=== PATIENT | female | born 1955 | race African-American/Black ===

== ENCOUNTER 2017-04-05 18:17 | Emergency (ER) | payer BC ==
[~2017-04-05] VITALS: Ht 162.6 cm; Wt 71.0 kg
[~2017-04-05 18:17] MED LIST: MACR100C PO; MULT-65 PO; PYRI200T4 PO
[2017-04-05 18:18] VITALS: BP 123/71; PULSE 94; RESP 14; TEMP 101.2; O2SAT 98
[2017-04-05] MEDS ORDERED: VITATAB43 PO (18:36)
[2017-04-05] MEDS ORDERED: VITA200013 PO (18:36)
[2017-04-05] MEDS ORDERED: METF500T PO (18:36)
[2017-04-05] MEDS ORDERED: NAPROXEN 500 MG TAB PO ONE (19:30)
[2017-04-05] MEDS ORDERED: guaiFENesin/DEXTROMETHORPHAN 200 MG/20 MG/10 ML CUP PO ONE (19:30)
--- NOTE | 2017-04-05 20:02 | RADRPT ---
EXAM DATE/TIME: 04/05/2017 19:22 [place] COMPARISON: No previous studies available for comparison. INDICATIONS : Chest pain and congestion since . MEDICAL HISTORY : None. SURGICAL HISTORY : None. ENCOUNTER: Initial ACUITY: 3 days PAIN SCORE: 5/10 LOCATION: Bilateral chest FINDINGS: PA and lateral views of the chest demonstrate bilateral consolidating airspace disease within the rig ht upper lobe and lingula. The cardiomediastinal contours are unremarkable. Osseous structures are i ntact. CONCLUSION: Bilateral midlung airspace disease. Ernesto Dillon MD on April 05, 2017 at 19:58 Board Certified Radiologist. This report was verified electronically.
[2017-04-05] MEDS ORDERED: AZITHROMYCIN 250 MG TAB PO ONE (20:15)
[2017-04-05] MEDS ORDERED: AZIT250T3 PO (20:35)
[2017-04-05] MEDS ORDERED: HUMIBIDDM PO (20:36)
--- NOTE | 2017-04-05 20:36 | PD ---
HPI Chief Complaint: Cold / Flu Symptoms Time Seen by Provider: 18:52 Travel History International Travel<30 days: No Contact w/Intl Traveler<30days: No Traveled to known affect area: No History of Present Illness HPI Is a 60 year-old woman presents to the emergency department complaining of headache, dizziness, chest pain, dry mouth, ongoing for a week or so. She's had fevers and chills at home. No shortness of breath. No history of lung problems. No history of tobacco use. Only medical history prediabetes. History Past Medical History Narrative Medical Prediabetes Influenza Vaccination: No LMP: na Menopausal: Yes Past Surgical History Surgical History: No Previous Surgery Social History Alcohol Use: Yes (wine occasionally) Tobacco Use: No Allergies-Medications (Allergen,Severity, Reaction): Coded Allergies: aspirin (Verified Allergy, Intermediate, 04/05/17) ABDOMINAL CRAMPING No Known Allergies (Unverified Allergy, Unknown, 04/05/17) Reported Meds & Prescriptions Reported Meds & Active Scripts Active Mucinex DM (Dextromethorphan-Guaifenesin) 30-600 Mg Tab 2 Tab PO BID PRN Azithromycin 250 Mg Tab 250 Mg PO DAILY 4 Days Reported Vitamin R34-Hqigf Acid (Cobalamine Combinations) 500-400 Mcg Tab 1 Tab PO DAILY Vitamin D (Cholecalciferol) Unknown Strength Cap Unknown Dose PO DAILY Metformin (Metformin HCl) 500 Mg Tab 500 Mg PO DAILY With a meal Review of Systems Except as stated in HPI: all other systems reviewed are Neg Physical Exam Narrative GENERAL: Well-appearing 61-year-old woman, no acute distress. SKIN: Focused skin assessment warm/dry. HEAD: Atraumatic. Normocephalic. EYES: Pupils equal and round. No scleral icterus. No injection or drainage. ENT: No nasal bleeding or discharge. Mucous membranes pink and moist. TMs normal. Throat is normal. NECK: Trachea midline. No JVD. CARDIOVASCULAR: Regular rate and rhythm. No murmur appreciated. RESPIRATORY: No respiratory distress. Lungs are clear to auscultation. GASTROINTESTINAL: Abdomen soft, non-tender, nondistended. Hepatic and splenic margins not palpable. MUSCULOSKELETAL: No obvious deformities. No clubbing. No cyanosis. No edema. NEUROLOGICAL: Awake and alert. No obvious cranial nerve deficits. Motor grossly within normal limits. Normal speech. PSYCHIATRIC: Appropriate mood and affect; insight and judgment normal. Data Data Last Documented VS Vital Signs Date Time Temp Pulse Resp B/P (MAP) Pulse Ox O2 Delivery O2 Flow Rate FiO2 04/05/17 20:37 04/05/17 18:34 17 97 Room Air 04/05/17 18:18 101.2 94 Orders Orders Influenzae A/B Antigen (04/05/17 18:28) Chest, Pa & Lat (04/05/17 ) Naproxen (Naprosyn) (04/05/17 19:30) Guaifen-Dm 200-20 Mg/10 Ml Liq (Robituss (04/05/17 19:30) Azithromycin (Zithromax) (04/05/17 20:15) Ed Discharge Order (04/05/17 20:36) [facility] Medical Decision Making Medical Screen Exam Complete: Yes Emergency Medical Condition: Yes Interpretation(s) Chest x-ray shows pneumonia Influenza test negative Differential Diagnosis Pneumonia, bronchitis, influenza, viral syndrome, other Narrative Course Medical decision-making new para 58-year-old presents emergency Department with fall. History past week or so. Chest shows small pneumonia. Some fever. Does not appear toxic or septic. No respiratory difficulties. Recommend outpatient treatment. Diagnosis Primary Impression: Community acquired pneumonia Additional Instructions: Take azithromycin as prescribed. Use Mucinex DM as needed for cough. Take Aleve as needed for fever or body aches. Return to the emergency department for any worsening chest pain, trouble breathing, or any other new or worsening symptoms. Med/Other Pt SpecificInfo: Prescription(s) given Scripts Dextromethorphan-Guaifenesin (Mucinex DM) 30-600 Mg Tab 2 TAB PO BID Y for CHEST CONGESTION AND/OR COUGH, #14 TAB 0 Refills Prov: Migue Degroot MD 04/05/17 Azithromycin (Azithromycin) 250 Mg Tab 250 MG PO DAILY for Infection for 4 Days, #4 TAB 0 Refills Prov: Migue Degroot MD 04/05/17 Disposition: 01 DISCHARGE HOME Condition: Stable Migue Degroot MD Apr 05, 2017 20:36
== END 2017-04-05 20:49 | disposition home or self-care (01) ==
LOC: NEPD 18:17
DX: J18.9 Pneumonia, unspecified organism (principal); R42 Dizziness and giddiness; R51 Headache; R73.03 Prediabetes; Z79.899 Other long term (current) drug therapy; Z88.6 Allergy status to analgesic agent
CPT/HCPCS: 71046; 87804; 99283